=== PATIENT | female | born 1955 | race Caucasian/White ===

== ENCOUNTER → 2019-10-09 11:41 | Outpatient (CLI) | payer MEDICARE, BC, SELFPAY ==
--- NOTE | 2019-10-09 11:43 | XR_ITS ---
PROCEDURE: XR FEMUR LT 2V CLINICAL INDICATION: s/p femur fx COMPARISON: No exams were available for comparison FINDINGS: The long intramedullary xu extends from the level of the greater trochanter to the distal femur at the diametaphyseal zone. There is deformity of the lower 3rd of the femur consistent with old healed fracture. There is apparent old large fracture fragment of the greater trochanter with slight medial displacement of the fracture fragment near the superior aspect of the femoral neck and this could could be a cause of pain and or decreased range of motion. There is no acute fracture seen. IMPRESSION: Posttraumatic and postsurgical changes left hip and femur as noted Dictated by: Dr. Austin Horner MD 10/09/2019 12:[address] Austin Horner MD in [facility] 10/09/2019 12:44
--- NOTE | 2019-10-09 11:43 | XR_ITS ---
PROCEDURE: XR TIBIA FIBULA LT 2V CLINICAL INDICATION: leg pain COMPARISON: Left knee same date FINDINGS: There is minor smudging of the bony trabeculae lateral tibial plateau and metaphysis of the tibial plateau laterally suggesting old healed nondisplaced fracture. There is minor spurring of the tibial spines. There is no significant joint space narrowing medially or laterally. Otherwise the tibia and fibula appear intact. The soft tissues are normal. The intramedullary xu is seen extending into the distal femur to the diametaphyseal zone. IMPRESSION: No acute fracture of the tibia and fibula Dictated by: Dr. Austin Horner MD 10/09/2019 12:[address] Austin Horner MD in [facility] 10/09/2019 12:38
--- NOTE | 2019-10-09 11:43 | XR_ITS ---
PROCEDURE: XR KNEE LT 4V CLINICAL INDICATION: leg pain COMPARISON: No exams were available for comparison FINDINGS: The lower extent of the intramedullary xu is seen transfixed by 3 threaded screws near the diametaphyseal zone of the distal femur. There is prominent deformity of the visualized portion of the lower femur consistent with a healed non recent fracture. There is minor cortical irregularity of the lateral tibial plateau and smudging of the bony directly lateral tibia suggesting an old healed lateral tibial plateau fracture. The patella is intact and I see no definite effusion. IMPRESSION: No acute findings. Dictated by: Dr. Austin Horner MD 10/09/2019 12:[address] Austin Horner MD in [facility] 10/09/2019 12:40
== END ==
PROVIDERS: PCP Family Medicine; Visit Provider Family Medicine
DX: M79.605 Pain in left leg (principal)
CPT/HCPCS: 73552; 73564; 73590

== ENCOUNTER → 2019-10-30 12:27 | Outpatient (CLI) | payer MEDICARE, BC, SELFPAY ==
--- NOTE | 2019-10-30 12:30 | XR_ITS ---
PROCEDURE: XR LUMBAR SPINE 2-3V CLINICAL INDICATION: back pain/ leg pain COMPARISON: No exams were available for comparison FINDINGS: There is normal curvature and alignment. All lumbar vertebrae appear intact. Disc spaces are well maintained throughout. There is minor anterior osteophytic spurring at the L1-2 and L2-3 levels. There is no pars defect. The SI joints appear normal. There is gastric lap band tubing and the band noted upper abdomen IMPRESSION: Minor degenerative changes upper lumbar spine is no Dictated Dr. Austin Chase MD 10/30/2019 13:28 Dr. Austin Horner MD in [facility] 10/30/2019 13:28
== END ==
PROVIDERS: PCP Family Medicine; Visit Provider Orthopaedic Surgery
DX: M79.605 Pain in left leg (principal)
CPT/HCPCS: 72100

== ENCOUNTER → 2019-12-01 13:25 | Outpatient (CLI) | payer MEDICARE, BC, SELFPAY ==
--- NOTE | 2019-12-01 13:27 | CT_ITS ---
PROCEDURE: CT FEMUR LT WO CON CLINICAL HISTORY: pain in left femur PAIN IN POSTERIOR LEFT FEMUR, FEELS LIKE HAMSTRING IS REALLY TIGHT HAS FALLEN 2 TIMES IN LAST MONTH SURGERY IN 2003 & 2003 XRAYS ON PACS COMPARISON: CR XR FEMUR LT 2V from 10/09/2019 TECHNIQUE: Axial images obtained with sagittal and coronal reformats. All CT scans at the facility use one or more dose reduction, viz: automated exposure control, ma/kV adjustment per patient size (including targeted exams where dose is matched to indication, i.e. head), or iterative reconstruction technique. FINDINGS: There is an intramedullary xu within the left femur stabilizing an old fracture of the mid to distal shaft of the femur. No acute fracture or dislocation is evident. There are mixed sclerotic and lucent areas within the left femoral head and neck with area of sclerosis greatest in the central aspect of the basicervical portion of the left femoral neck. Heterotopic ossification is present superior to the greater trochanter. There is also heterotopic ossification along the medial and mid aspect of the shaft of the femur. Hyperostotic changes are present in the anterior aspect of the femoral shaft at this area. Along the lateral aspect of this area of hyperostosis there is a area of lucency. This is of questionable clinical significance best seen on image 134 through 145. This may only be due to the pattern of remodeling. There is fatty infiltration of the vastus lateralis at this area. Mild osteoarthritic changes are present at the knee. No soft tissue mass is apparent. There is some nonspecific subchondral sclerosis of the posterior aspect of the femoral head IMPRESSION: Postsurgical changes from prior intramedullary xu placement with bony remodeling at the old fracture site at the junction of the mid distal shaft of the femur. There are areas of heterotopic ossification. No acute fracture or dislocation is evident. Nonspecific lucent and sclerotic areas within the femoral head and neck. Has there been an old femoral neck fracture? Possibly related to an old bone infarct. Bone scan may provide further evaluation to determine the activity of this region. Follow-up is recommended There is some subchondral sclerosis of the posterior aspect of the femoral head which may be seen with avascular necrosis Dictated by: Sergio Lee MD 12/02/2019 11:50 Sergio Lee MD in [facility] 12/02/2019 11:50
== END ==
PROVIDERS: PCP Family Medicine; Visit Provider Orthopaedic Surgery
DX: M89.8X5 Other specified disorders of bone, thigh (principal); Z87.81 Personal history of (healed) traumatic fracture
CPT/HCPCS: 73700

== ENCOUNTER → 2019-12-14 09:10 | Outpatient (CLI) | payer MEDICARE, BC, SELFPAY ==
[2019-12-14 09:13] LABS: MANUAL DIFFERENTIAL MANUAL DIFFERENTIAL (MANUAL DIFF)
[2019-12-14 09:53] LABS: Basophils # 0.1 K/mm3 (0-0.2); Basophils % 1.7 % (0.1-2.0); Eosinophils # 0.2 K/mm3 (0.0-0.4); Eosinophils % 4.1 % (0.1-12.0); Hematocrit 40.2 % (37.0-47.0); Hemoglobin 13.5 g/dL (12.2-16.2); Lymphocytes # 1.4 K/mm3 (0.7-4.5); Lymphocytes % 23.8 % (10-50); Mean Corpuscular HGB Conc 33.5 g/dL (31.8-35.4); Mean Corpuscular Hemoglobin 29.8 pg (27.0-31.2); Mean Corpuscular Volume 88.8 fl (81-99); Mean Platelet Volume 7.9 fl (7.4-10.4); Monocytes # 0.4 K/mm3 (0.1-1.0); Monocytes % 6.9 % (1.7-9.3); Neutrophils # 3.7 K/mm3 (1.8-7.8); Neutrophils % 63.4 % (37.0-80.0); Platelet Count 262 K/mm3 (142-424); Red Blood Count 4.52 M/mm3 (4.20-5.40); Red Cell Distribution Width 14.3 % (11.5-17.5); White Blood Count 5.8 K/mm3 (4.8-10.8)
[2019-12-14 10:15] LABS: Chloride 103 mmol/L (98-107); Sodium 141 mmol/L (136-145)
[2019-12-14 10:16] LABS: Potassium 5.4 mmoL/L (3.5-5.1)
[2019-12-14 10:17] LABS: Erythrocyte Sedimentation Rate 19 mm/hr (0-30)
[2019-12-14 10:18] LABS: Alanine Aminotransferase 14 U/L (12-78); Albumin Level 4.1 g/dl (3.5-5.0); Albumin/Globulin Ratio 1.5 (1.1-1.8); Alkaline Phosphatase 132 U/L (38-126); Anion Gap 14.4 mEq/L (5-15); Aspartate Amino Transferase 28 U/L (14-36); Bilirubin,Total 0.5 mg/dl (0.2-1.3); Blood Urea Nitrogen 9 mg/dl (7-17); Carbon Dioxide 29 mmol/L (22.0-30.0); Estimated Glomerular Filt Rate 56 ml/min (>60); GFR (African American) 67 ML/MIN (>60); Globulin 2.8 g/dL (1.3-3.2); Total Protein,Serum 6.9 g/dl (6.3-8.2)
[2019-12-14 10:19] LABS: Calcium 10.1 mg/dl (8.4-10.2); Glucose 97 mg/dl (74-100)
[2019-12-14 10:25] LABS: C-Reactive Protein 0.7 mg/L (0-4)
[2019-12-14 10:40] LABS: Lymphocytes % 31 % (10-50); Monocytes % 4 % (2-9); Neutrophils % 65 % (42-76); Platelet Estimate Normal; RBC Morphology Normal; Total Cells Counted 100
== END ==
PROVIDERS: Visit Provider Orthopaedic Surgery
DX: M89.8X5 Other specified disorders of bone, thigh (principal)
CPT/HCPCS: 36415; 80053; 85007; 85014; 85018; 85048; 85049; 85651; 86140